=== PATIENT | female | born 1980 | race Caucasian/White ===

== ENCOUNTER 2025-05-14 17:55 | Emergency (ER) | payer MEDICAID, SELFPAY ==
[2025-05-14 18:15] VITALS: BP 147/94; PULSE 73; RESP 18; TEMP 36.6; O2SAT 100; BMI 32.9
--- NOTE | 2025-05-14 18:31 | PD.EDRME ---
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 Patient also has some dysuria/hematuria. Patient also thinks she rolled her R ankle. Chief Complaint: Hip Injury/Pain Time Seen by Provider: 05/14/25 18:34 Vital signs: Vital Signs Temperature 97.9 F 05/14/25 18:15 Pulse Rate 73 05/14/25 18:15 Respiratory Rate 18 05/14/25 18:15 Blood Pressure 147/94 H 05/14/25 18:15 Pulse Oximetry (%) 100 05/14/25 18:15 Oxygen Delivery Method Room Air 05/14/25 18:15 Exam: Appears uncomfortable. Some R ankle tenderness. ROM intact. Clinical Impression: Joint pain vs UTI vs kidney stone vs DVT vs ankle sprain vs ankle vx
--- NOTE | 2025-05-14 18:52 | XR_ITS ---
EXAMINATION: Ankle, right 3 views. Technique: Ankle AP, oblique, lateral 3 views Date and time of exam: May 14, 2025, 1942 hours INDICATION: Multiple falls this week. FINDINGS: Lateral malleolar soft tissue swelling. Old appearing fracture at the base of the fifth metatarsal but clinical correlation advised IMPRESSION: Recommend follow-up right foot films to exclude acute fracture at the base of the fifth metatarsal
[2025-05-14 19:08] LABS: Basophils # (Auto) 0.1 Thou/mm3 (0.0-0.2); Basophils % (Auto) 1 % (0-2.5); Eosinophils # (Auto) 0.3 Thou/mm3 (0.0-0.5); Eosinophils % (Auto) 3 % (0-10); Hematocrit 42.2 % (36.0-46.0); Hemoglobin 13.9 g/dL (12.0-16.0); Immature Granulocytes Auto 0.02 Thou/mm3 (0.00-0.00); Lymphocytes # (Auto) 2.1 Thou/mm3 (1.0-4.8); Lymphocytes % (Auto) 25 % (10-50); Mean Corpuscular HGB Conc 32.9 g/dl (31.0-37.0); Mean Corpuscular Hemoglobin 28.7 pg (25.0-35.0); Mean Corpuscular Volume 87 fL (80-100); Monocytes # (Auto) 0.7 Thou/mm3 (0.0-0.8); Monocytes % (Auto) 9 % (0-12); Neutrophils # (Auto) 5.3 Thou/mm3 (1.8-7.7); Neutrophils % (Auto) 63 % (37-80); Nucleated Red Blood Cell # 0.00 Thou/mm3 (0.00-0.00); Nucleated Red Blood Cell % 0 /100 WBC (0); Platelet Count 225 Thou/mm3 (140-440); RDW Standard Deviation 39.7 fL (36.4-46.3); Red Blood Count 4.85 Miln/mm3 (4.00-5.20); White Blood Count 8.5 Thou/mm3 (3.6-11.0)
[2025-05-14 19:30] LABS: Alanine Aminotransferase 16 U/L (10-49); Albumin, Serum 4.2 gm/dL (3.5-5.0); Albumin/Globulin Ratio 1.4 (1.2-2.2); Alkaline Phosphatase 74 U/L (46-116); Anion Gap 8 (7-16); Aspartate Amino Transferase < 8 U/L (0-34); BUN/Creatinine Ratio 11 Ratio (12-20); Bilirubin,Total 0.7 mg/dL (0.3-1.2); Blood Urea Nitrogen 10 mg/dL (9-23); Calcium 9.4 mg/dL (8.3-10.6); Calcium (Corrected) 9.4 mg/dL (8.5-10.1); Carbon Dioxide 27.5 mMol/L (20.0-31.0); Chloride 106 mMol/L (98-107); Creatinine (Component) 0.9 mg/dL (0.6-1.3); Estimated Creatinine Clearance 87.4 mL/min (>60); Globulin 3.1 gm/dL (2.3-3.5); Glucose 110 mg/dL (74-106); Osmolality,Calculated 281 (275-295); Potassium 4.8 mMol/L (3.4-5.1); Sodium 141 mMol/L (136-145); Total Protein 7.3 gm/dL (5.7-8.2); eGFR > 60 See Note
[2025-05-14] MEDS: HYDROcodone/APAP 5/325 TABLET 1 TAB PO (19:44)
--- NOTE | 2025-05-14 20:47 | XR_ITS ---
Examination: Foot, right, 3 views Technique: AP, oblique, lateral views foot, 3 views Date and time of exam: Patient fell today with twisting injury right foot pain FINDINGS: Old ununited fracture base fifth metatarsal No acute fracture No dislocation IMPRESSION: No acute fracture
--- NOTE | 2025-05-14 21:54 | XR_ITS ---
Examination: CT abdomen and pelvis without contrast. Coronal 3-D reconstructions. Sagittal 2-D reconstructions. Date and time of exam: May 14, 2025, 2157 hours INDICATIONS: Right flank pain 1 week CTDI: vol (mGy): 8.69 DLP: (mGycm): 469 Technique: Axial images of the abdomen have been obtained, 3 mm slice thickness Intravenous contrast material has not been administered. Low dose protocols were performed. One or more of the following dose reduction techniques were used; automated exposure control, adjustment of the mA and/or KV according to patient size, use of iterative reconstruction technique. Findings: No intrahepatic biliary tract dilatation No gallstones No pancreatic or adrenal mass Spleen is not enlarged No renal or ureteral calculi, no hydronephrosis Normal appendix No bowel obstruction Anteverted uterus with probable 9 mm cyst in the lower uterine segment Contracted urinary bladder Cortical bone destruction contiguous margins L2-L3 with marked disc narrowing, this could produce impingement upon the L3 nerve root producing hip pain Moderate bilateral hip osteoarthritis IMPRESSION: No renal or ureteral calculi, no hydronephrosis Normal appendix No bowel obstruction Cortical bone destruction contiguous margins L2-L3 consistent with osteomyelitis discitis, recommend MRI lumbar spine follow-up pre and postcontrast Moderate bilateral hip osteoarthritis
[2025-05-14 22:10] LABS: Collection Type, Urine Clean Catch
[2025-05-14 22:14] LABS: HCG Qualitative,Urine Negative
[2025-05-14 22:17] LABS: Amorphous Crystals,Urine Present (Absent); Bilirubin,Urine Negative (Negative); Blood,Urine 2+ (Negative); Budding Yeast,Urine Present; Clarity,Urine Turbid (Clear/Hazy); Color,Urine Yellow (Lt Yel-Yel); Glucose, Urine Negative (Negative); Ketones,Urine Negative (Negative); Leukocyte Esterase,Urine Positive (Negative); Nitrite,Urine Negative (Negative); PH,Urine 7.5 (5.0-7.0); Protein,Urine 1+ (Neg - Trace); RBC,Urine 22 /hpf (0-3); Specific Gravity,Urine 1.022 (1.001-1.035); Squamous Epithelial Cell,Urine 5 /hpf (0-5); Triple Phosphate Crystal,Urine Rare; Urobilinogen,Urine 3.0 mg/dL (0.0-1.0); WBC,Urine 171 /hpf (0-5)
[2025-05-14 22:20] LABS: Culture Indicated,Urine Yes
[2025-05-14 22:25] LABS: Amphetamine/Methamp Scrn,U Positive (Negative); Barbiturate Screen,Urine Negative (Negative); Benzodiazepines Screen,Urine Negative (Negative); Benzoylecgonine Screen, Ur Negative (Negative); Fentanyl Screen,Urine Negative (Negative); Opiate Screen,Urine Positive (Negative); THC Screen,Urine Negative (Negative)
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
[2025-05-14 23:45] LABS: Sed Rate (ESR) 8 mm/hr (0-20)
[2025-05-14 23:57] VITALS: BP 121/78; PULSE 69; RESP 18; TEMP 36.6; O2SAT 99
--- NOTE | 2025-05-15 | XR_ITS ---
Examination: MRI lumbar spine without contrast Date and time of exam: May 15, 2025, 1321 hours INDICATIONS: Cortical bone destruction contiguous margins L2-L3 on CT examination May 14, 2025 Technique: Multiple MRI axial and sagittal sections lumbar spine. Sagittal T2-weighted images, TR 3500, TE 118 T1 weighted transverse sections, TR 688 T8.5, T2-weighted sagittal sections T1 weighted sagittal sections TR 621, TE 30 T2 axial sections, TR 4, 190, TE 84. Findings: Advanced disc narrowing L2-3 This is a noncontrast study so that assessment for enhancement involving the L2-L3 vertebral bodies and intervening disc not possible Diffuse lumbar disc desiccation Grade 1 anterolisthesis L3 on L4 No focal lumbar disc protrusion IMPRESSION: Advanced degenerative disc disease L2-L3 No contrast images obtained to assess for abnormal osseous or disc enhancement
--- NOTE | 2025-05-15 | XR_ITS ---
EXAMINATION: MRI lumbar spine with intravenous contrast TECHNIQUE: Multiple axial sagittal MRI brain images post intravenous administration 18 cc gadolinium Date and time: May 15, 2025, 1410 hours, comparison MRI lumbar spine without contrast May 15, 2025 INDICATIONS: Cortical bone destruction contiguous margins L2-L3 on CT examination May 14, 2025 FINDINGS: Advanced disc narrowing L2-L3 The postcontrast images demonstrate only minimal contrast enhancement inferior margin L2, superior margin L3 and no definite enhancement involving the contiguous disc This appearance may relate to the reactive bony endplate change secondary to the severe disc narrowing at the L2-L3 level Normal position conus medullaris and cauda equina IMPRESSION: No findings diagnostic for osteomyelitis discitis at the L2-L3 level
[2025-05-15 00:07] LABS: C-Reactive Protein < 0.5 mg/dL (0.0-0.9)
[2025-05-15] MEDS: PIPER/TAZO INJ 4.5 GM in SODIUM CHLORIDE 0.9% (POP) 100 ML IV (00:15)
[2025-05-15 01:08] LABS: Lactate (Lactic Acid) 1.1 mMol/L (0.4-2.0)
[2025-05-15] MEDS: VANCOMYCIN/NS 1 GM IVPB 200 ML IV ×2 (01:37→08:46)
[2025-05-15 02:26] VITALS: BP 140/87; PULSE 85; RESP 17; TEMP 36.8; O2SAT 98
[2025-05-15 06:29] VITALS: BP 125/72; PULSE 89; RESP 18; TEMP 36.9; O2SAT 96
--- NOTE | 2025-05-15 07:02 | PC.NURSE ---
pt has been sleeping since arrival to . arouses easily.
[2025-05-15 10:00] VITALS: BP 147/96; PULSE 81; RESP 18; TEMP 36.5; O2SAT 99
[2025-05-15 11:34] VITALS: BP 153/109; PULSE 86; RESP 18; TEMP 36.9; O2SAT 99
--- NOTE | 2025-05-15 12:16 | PD.EDADDENDU ---
Emergency Room Addendum <E[place]ta Nation - Last Filed: 05/15/25 17:47> Addendum Narrative: 0600: Care assumed from Dr. Joshua, the previous shift emergency physician. Past medical, surgical, social and family history reviewed. Vitals and home medications reviewed. I will assume the care of the patient at this time, pending MR lumbar spine wo con and final disposition. Please refer to the emergency department record for history and examination from initial visit.?The following addendum documentation note is intended to reflect any pending information, findings, or radiology results not included in the patient?s initial chart. MRI lumbar spine report shows Advanced degenerative disc disease L2-L3. No contrast images obtained to assess for abnormal osseous or disc enhancement . 1540h: MRI w con ordered MRI lumbar spine w con report shows No findings diagnostic for osteomyelitis discitis at the L2-L3 level . <Haydee Moss MD - Last Filed: 05/15/25 17:52> Addendum Narrative: 0600: Care assumed from Dr. Joshua, the previous shift emergency physician. Past medical, surgical, social and family history reviewed. Vitals and home medications reviewed. I will assume the care of the patient at this time, pending MR lumbar spine wo con and final disposition. Please refer to the emergency department record for history and examination from initial visit.?The following addendum documentation note is intended to reflect any pending information, findings, or radiology results not included in the patient?s initial chart. MRI lumbar spine report shows Advanced degenerative disc disease L2-L3. No contrast images obtained to assess for abnormal osseous or disc enhancement . 1540h: MRI w con ordered MRI lumbar spine w con report shows No findings diagnostic for osteomyelitis discitis at the L2-L3 level . Patient's labs were again reviewed. Has UTI. Will treat for same. Okay for discharge home at this time with outpatient follow-up advised. Dx: UTI, low back pain Dispo: DC home
[2025-05-15 16:35] VITALS: BP 134/82; PULSE 77; RESP 13; TEMP 36.9; O2SAT 99
[2025-05-15 18:00] VITALS: BP 147/91; PULSE 98; RESP 19; TEMP 36.8; O2SAT 100
== END 2025-05-15 19:04 | disposition home or self-care (01) ==
PROVIDERS: Emergency Medicine; Physician Assistant; Emergency Provider Family Medicine
DX: M16.0 Bilateral primary osteoarthritis of hip (principal); M89.8X8 Other specified disorders of bone, other site; M51.360 Other intervertebral disc degeneration, lumbar region with discogenic back pain only; N39.0 Urinary tract infection, site not specified; M79.671 Pain in right foot
CPT/HCPCS: 36415; 72148; 72149; 72158; 73610; 73630; 74176; 80053; 80307; 81001; 81025; 83605; 85025; 85652; 86140; 87040; 87077; 87086; 87186; 96365; 96366; 99284; A9577; J2543; J3373; J3490; A9270